=== PATIENT | female | born 1980 | race American Indian/Alaskan Native ===

== ENCOUNTER 2018-04-25 10:01 | Emergency (ER) | payer SELFPAY | END 2018-04-25 10:02 | disposition left against medical advice (07) | LOC: ED 10:01 | DX: K92.1 Melena (principal); R10.9 Unspecified abdominal pain; Z53.21 Procedure and treatment not carried out due to patient leaving prior to being seen by health care provider ==

== ENCOUNTER 2019-11-24 14:31 | Emergency (ER) | payer SELFPAY ==
--- NOTE | 2019-11-24 15:03 | Event Note ---
ED Screening Note Date of service: 11/24/19 Time: 15:02 ED Screening Note: Pt complains of flu like symptoms x 3 days and syncopal episode x today +JAUREGUI and nausea This initial assessment/diagnostic orders/clinical plan/treatment(s) is/are subject to change based on patients health status, clinical progression and re- assessment by fellow clinical providers in the ED. Further treatment and workup at subsequent clinical providers discretion. Patient/guardian urged not to elope from the ED as their condition may be serious if not clinically assessed and managed. Initial orders include: labs CT
[2019-11-24 15:41] LABS: Color,Urine Yellow (Yellow)
[2019-11-24 15:42] LABS: Bilirubin,Urine NEG (Negative); Blood,Urine LG (Negative); Mucus,Urine FEW /HPF; Protein,Urine <15 mg/dL mg/dL (Negative); Urobilinogen,Urine < 2.0 mg/dL (<2.0)
[2019-11-24 15:47] LABS: HCG Qualitative,Urine Negative (Negative)
--- NOTE | 2019-11-24 16:56 | XRay Report ---
CHEST 2 VIEWS INDICATION: MAIN: syncope FOR 3 TO 4 DAYS. COMPARISON: None. FINDINGS: Support devices: None. Heart: Within normal limits. Lungs/Pleura: No acute air space or interstitial disease. No significant pleural effusion. IMPRESSION: No acute findings. Signer Name: Uche Belle MD Signed: 11/24/2019 4:52 PM Workstation Name: [id number]
[2019-11-24 17:00] LABS: Hematocrit 24.5 % (30.3-42.9); Hemoglobin 7.6 gm/dl (10.1-14.3); Mean Corpuscular HGB Conc 31 % (30-34); Platelet Count 327 K/mm3 (140-440); Red Blood Count 4.08 M/mm3 (3.65-5.03)
[2019-11-24 17:03] LABS: Alanine Aminotransferase 14 units/L (7-56); Albumin 4.2 g/dL (3.9-5); BUN/Creatinine Ratio 6; Blood Urea Nitrogen 4 mg/dL (7-17); Calcium 9.8 mg/dL (8.4-10.2); Hemolysis Index 0; Mean Corpuscular Volume 60 fl (79-97); Red Cell Distribution Width 21.7 % (13.2-15.2)
--- NOTE | 2019-11-24 17:47 | Cat Scan Report ---
NONENHANCED CT SCAN OF THE HEAD: INDICATION / CLINICAL INFORMATION: 39 years Female; syncopal episode. TECHNIQUE: Routine CT head without contrast. All CT scans at this location are performed using CT dos e reduction for ALARA by means of automated exposure control. COMPARISON: None. FINDINGS: BRAIN / INTRACRANIAL CONTENTS: No acute hemorrhage, mass effect, midline shift, hydrocephalus, or acu te, large territorial infarct. No chronic infarct or focal atrophy. Normal brain volume and ventricul ar/sulcal size for age. No significant white matter abnormality. CRANIOCERVICAL JUNCTION: No significant abnormality. ORBITS: Bony remodeling is seen along the medial wall of left orbit; this could be congenital or coul d be posttraumatic. Ocular globes are normal bilaterally. SINUSES / MASTOIDS: No significant abnormality of the visualized paranasal sinuses or mastoid air sidra ls. ADDITIONAL FINDINGS: None. IMPRESSION: Normal nonenhanced CT scan of the brain. Signer Name: Fabienne Merritt MD Signed: 11/24/2019 5:42 PM Workstation Name: [id number]
--- NOTE | 2019-11-24 17:58 | Cat Scan Report ---
Exam: CT cervical spine History: pain after head injury; Technique: Contiguous thin cut axial images obtained through the cervical spine. Sagittal and otero l reconstructions performed by the technologist. All CT scans at this location are performed using CT dose reduction for ALARA by means of automated exposure control. Findings: No priors. There is no evidence of fracture or traumatic subluxation. I do not see vertebral compression fractur e. Prevertebral space is normal. In the transverse images, I do not see fracture involving the bony c anal. Vertebral bodies are normal in height and alignment. Intervertebral disc spaces are well-maintained. No significant degenerative change seen in the uncinate or facet joints. No significant canal stenosi s or osseous foraminal narrowing. Surrounding soft tissues are grossly normal. Impression: No signs of acute bony trauma to the cervical spine. Signer Name: Fabienne Merritt MD Signed: 11/24/2019 5:53 PM Workstation Name: [id number]
[2019-11-24 18:01] LABS: Basophils % (Manual) 0 % (0.0-1.8); Total Cells Counted 100
[2019-11-24 18:02] LABS: Hypochromasia 2+
[2019-11-24 18:04] LABS: Large Platelets 1+; Platelet Estimate Consistent w Auto; Target Cells 2+; Tear Drop Cells 1+
[2019-11-24] MEDS ORDERED: BUTALB/ACETAMINOPHEN/CAFFEINE TAB PO ONE (19:46)
[2019-11-24] MEDS ORDERED: IBUPROFEN 600 MG TAB PO ONE (19:46)
[2019-11-24 20:43] VITALS: BP 138/61
--- NOTE | 2019-11-24 20:44 | Emergency Department Report ---
ED General Adult HPI - General Chief complaint: Upper Respiratory Infection Stated complaint: BODY ACHES,SHORT OF BREATH Time Seen by Provider: 11/24/19 15:01 Source: patient, EMS Mode of arrival: Ambulatory Limitations: No Limitations - History of Present Illness Initial comments: Patient is a 39-year-old Turkish female with a history of chronic iron deficiency anemia and is not on any medications presents to the ED with content of acute onset persistent nasal and sinus congestion, frontal sinus pressure and headache for 2 days. Patient also complains of a single episode of syncope 2 hours ago that occurred when she got out of bed and as she walked to the bathroom, had a syncopal episode with brief loss of consciousness. Patient states that there was no weaknesses in the house at the time. Patient denies dizziness, seizures, chest pain, shortness of breath, abdominal pain, change in vision, nausea and vomiting or diarrhea, dysuria, urinary frequency and urgency, sore throat, fever and chills. MD Complaint: syncope; headache -: Sudden, hour(s) (8) Location: head, chest Radiation: non-radiation Severity scale (0 -10): 7 Quality: aching, sharp Consistency: constant Improves with: none Worsens with: none Associated Symptoms: denies other symptoms, cough, fever/chills, headaches, loss of appetite, malaise. denies: confusion, chest pain, diaphoresis, nausea/vomiting, rash, seizure, shortness of breath, syncope, weakness, other Treatments Prior to Arrival: none - Related Data Previous Rx's Medication Instructions Recorded Last Taken Type HYDROcodone/APAP 10-325 [Phyllis 1 each PO Q8H PRN #20 tablet 06/08/15 Unknown Rx 10/325] Polyethylene Glycol 3350 [Miralax] 15 gm PO QDAY #1 powder 06/08/15 Unknown Rx Benzonatate [Tessalon Perles] 100 mg PO Q8HR #30 capsule 11/24/19 Unknown Rx Ferrous Sulfate [Ferrous Sulfate 324 mg PO DAILY #30 tablet.dr 11/24/19 Unknown Rx 324 MG] Ibuprofen [Motrin] 600 mg PO Q8H PRN #20 tablet 11/24/19 Unknown Rx Ondansetron [Zofran Odt] 4 mg PO Q6HR PRN #15 tab.rapdis 11/24/19 Unknown Rx cephALEXin [Keflex] 500 mg PO Q8HR #30 cap 11/24/19 Unknown Rx Allergies Allergy/AdvReac Type Severity Reaction Status Date / Time No Known Allergies Allergy Verified 06/07/15 20:17 ED Review of Systems ROS: Stated complaint: BODY ACHES,SHORT OF BREATH Other details as noted in HPI Constitutional: denies: chills, fever Eyes: denies: eye pain, eye discharge, vision change ENT: congestion. denies: ear pain, throat pain Respiratory: cough. denies: shortness of breath, wheezing Cardiovascular: denies: chest pain, palpitations Endocrine: no symptoms reported Gastrointestinal: denies: abdominal pain, nausea, vomiting, diarrhea Genitourinary: denies: urgency, dysuria, discharge Musculoskeletal: denies: back pain, joint swelling, arthralgia Skin: denies: rash, lesions Neurological: headache, other (syncope). denies: weakness, paresthesias Psychiatric: denies: anxiety, depression Hematological/Lymphatic: denies: easy bleeding, easy bruising ED Past Medical Hx - Past Medical History Previous Medical History?: Yes Additional medical history: Hemorrhoids - Surgical History Past Surgical History?: Yes Additional Surgical History: ectopic surgery - Social History Smoking Status: Current Every Day Smoker Substance Use Type: None - Medications Home Medications: Home Medications Medication Instructions Recorded Confirmed Last Taken Type HYDROcodone/APAP 10-325 [Phyllis 1 each PO Q8H PRN #20 tablet 06/08/15 Unknown Rx 10/325] Polyethylene Glycol 3350 [Miralax] 15 gm PO QDAY #1 powder 06/08/15 Unknown Rx Benzonatate [Tessalon Perles] 100 mg PO Q8HR #30 capsule 11/24/19 Unknown Rx Ferrous Sulfate [Ferrous Sulfate 324 mg PO DAILY #30 tablet.dr 11/24/19 Unknown Rx 324 MG] Ibuprofen [Motrin] 600 mg PO Q8H PRN #20 tablet 11/24/19 Unknown Rx Ondansetron [Zofran Odt] 4 mg PO Q6HR PRN #15 tab.rapdis 11/24/19 Unknown Rx cephALEXin [Keflex] 500 mg PO Q8HR #30 cap 11/24/19 Unknown Rx ED Physical Exam - General Limitations: No Limitations General appearance: alert, in no apparent distress - Head Head exam: Present: atraumatic, normocephalic, normal inspection - Eye Eye exam: Present: normal appearance, PERRL, EOMI Pupils: Present: normal accommodation - ENT ENT exam: Present: normal orophraynx, mucous membranes moist, TM's normal bilaterally, normal external ear exam, other (grossly congested nasal passages, frontal sinus tenderness) - Neck Neck exam: Present: normal inspection, full ROM - Respiratory Respiratory exam: Present: normal lung sounds bilaterally. Absent: respiratory distress, wheezes, rales, rhonchi, chest wall tenderness, accessory muscle use, decreased breath sounds - Cardiovascular Cardiovascular Exam: Present: regular rate, normal rhythm, normal heart sounds. Absent: systolic murmur, diastolic murmur, rubs, gallop - GI/Abdominal GI/Abdominal exam: Present: soft, normal bowel sounds. Absent: tenderness, guarding, hyperactive bowel sounds, organomegaly - Extremities Exam Extremities exam: Present: normal inspection, full ROM, normal capillary refill - Back Exam Back exam: Present: normal inspection, full ROM. Absent: tenderness, CVA tenderness (R), CVA tenderness (L), muscle spasm, paraspinal tenderness - Neurological Exam Neurological exam: Present: alert, oriented X3, CN II-XII intact, normal gait, reflexes normal - Psychiatric Psychiatric exam: Present: normal affect, normal mood - Skin Skin exam: Present: warm, dry, intact, normal color. Absent: rash ED Course Vital Signs 11/24/19 11/24/19 11/24/19 15:02 20:00 20:03 Temperature 98.4 F Pulse Rate 98 H Respiratory 16 16 16 Rate Blood Pressure 112/75 O2 Sat by Pulse 98 Oximetry ED Medical Decision Making - Lab Data Result diagrams: 11/24/19 16:35 11/24/19 16:35 - EKG Data EKG shows normal: sinus rhythm Rate: normal - EKG Data Interpretation: normal EKG 11/24/19 20:52 EKG shows normal sinus rhythm with ventricular rate of 86 bpm, no ST or T-wave abnormalities or pathological Q waves. - Radiology Data Radiology results: report reviewed, image reviewed Head CT scan without contrast shows no acute intracranial abnormalities or hemorrhage. Chest x-ray shows no acute cardiopulmonary abnormalities or pneumonitis. - Medical Decision Making This is a 39-year-old -Turkish female with a history of chronic iron deficiency anemia and was noncompliant with the medication presents to the ED with acute onset persistent nasal and sinus congestion, dry cough, headache and diffuse body aches for 2 days. Patient also states that prior to arrival in the ED she had a single episode of syncope with brief loss of consciousness. In the ED, patient is alert and oriented 3 and is not in distress. Lab test results show hemoglobin of 7.6 and hematocrit of 24.5, UTI in urinalysis and mild hyponatremia 136 mmol per liter. The EKG shows normal sinus rhythm with a ventricular rate of [address] or T-wave abnormalities or pathological Q waves. Chest x-ray shows no acute cardiopulmonary of modalities or pneumonitis. Head CT scan without contrast shows no intracranial abnormalities or hemorrhage. Other lab test results are unremarkable. Patient was treated for pain in the ED and was discharged home on medications including iron tablets for her chronic iron deficiency anemia. Patient was advised to follow-up with her primary care physician in 7-10 days for reevaluation or return to the ED immediately if symptoms get worse. - Differential Diagnosis sinusitis; URI; Chronic anemia; Vasovagal syncope Critical care attestation.: If time is entered above; I have spent that time in minutes in the direct care of this critically ill patient, excluding procedure time. ED Disposition Clinical Impression: Syncope and collapse, Acute upper respiratory infection, Chronic iron deficiency anemia, Acute urinary tract infection Disposition: DC-01 TO HOME OR SELFCARE Is pt being admited?: No Does the pt Need Aspirin: No Condition: Stable Instructions: Syncope (ED), Iron Deficiency Anemia (ED), Urinary Tract Infection in Women (ED) Additional Instructions: Take medications with food, drink plenty of fluids and follow-up with your primary care physician in 7-10 days for reevaluation. Return to the ED immediately if symptoms get worse. Prescriptions: Ferrous Sulfate [Ferrous Sulfate 324 MG] 324 mg PO DAILY #30 tablet. cephALEXin [Keflex] 500 mg PO Q8HR #30 cap Ibuprofen [Motrin] 600 mg PO Q8H PRN #20 tablet PRN Reason: Pain Benzonatate [Tessalon Perles] 100 mg PO Q8HR #30 capsule Ondansetron [Zofran Odt] 4 mg PO Q6HR PRN #15 tab.rapdis PRN Reason: Nausea Referrals: [facility] [Outside] - 7-10 days Time of Disposition: 20:40 Print Language: BULGARIAN
== END 2019-11-24 20:48 | disposition home or self-care (01) ==
LOC: ED 14:31
DX: N39.0 Urinary tract infection, site not specified (principal); J06.9 Acute upper respiratory infection, unspecified; Z86.2 Personal history of diseases of the blood and blood-forming organs and certain disorders involving the immune mechanism
CPT/HCPCS: 36415; 70450; 71046; 72125; 80053; 81001; 81025; 84484; 85007; 85025; 87086; 93005; 93010

== ENCOUNTER 2020-12-02 00:23 | Emergency (ER) | payer SELFPAY ==
[2020-12-02] MEDS ORDERED: SODIUM CHLORIDE 0.9% 1000 ML 1,000 ML IV ONE (00:48)
[2020-12-02] MEDS ORDERED: ONDANSETRON 4 MG/2 ML INJ IV ONE (00:48)
[2020-12-02] MEDS ORDERED: FAMOTIDINE 20 MG/2 ML INJ IV ONE (00:48)
[2020-12-02] MEDS ORDERED: DICYCLOMINE 20 MG/2 ML INJ IM ONE (00:49)
[2020-12-02 01:31] LABS: Hematocrit 28.4 % (30.3-42.9); Hemoglobin 8.9 gm/dl (10.1-14.3); Mean Corpuscular HGB Conc 31 % (30-34); Platelet Count 449 K/mm3 (140-440); Red Blood Count 4.46 M/mm3 (3.65-5.03)
[2020-12-02 01:39] LABS: Basophils % (Auto) 0.2 % (0.0-1.8); Lymphocytes # (Auto) 0.4 K/mm3 (1.2-5.4); Lymphocytes % (Auto) 2.9 % (13.4-35.0); Mean Corpuscular Volume 64 fl (79-97); Monocytes # (Auto) 0.6 K/mm3 (0.0-0.8); Monocytes % (Auto) 4.5 % (0.0-7.3)
[2020-12-02 01:50] LABS: Alanine Aminotransferase 12 units/L (7-56); Albumin 4.2 g/dL (3.9-5); BUN/Creatinine Ratio 8; Blood Urea Nitrogen 6 mg/dL (7-17); Calcium 10.6 mg/dL (8.4-10.2); Hemolysis Index 5
[2020-12-02 05:24] LABS: Bacteria,Urine 1+ /HPF (Negative); Bilirubin,Urine NEG (Negative); Blood,Urine NEG (Negative); Color,Urine Yellow (Yellow); Protein,Urine <15 mg/dL mg/dL (Negative); Urobilinogen,Urine < 2.0 mg/dL (<2.0)
[2020-12-02] MEDS ORDERED: KETOROLAC 30 MG/1 ML INJ IV ONE (05:25)
--- NOTE | 2020-12-02 05:34 | Emergency Department Report ---
ED N/V/D HPI - General Chief complaint: Abdominal Pain Stated complaint: VOMITING DIARRHEA ABD PAIN Source: patient, EMS Mode of arrival: Wheelchair Limitations: No Limitations - History of Present Illness Initial comments: Patient is a 40-year-old -British female with a history of hemorrhoids who presents to the ED with complaint of acute onset persistent intractable n ausea and vomiting with diffuse abdominal pain for the last 24 hours. Patient states that prior to the onset of the symptoms she had eaten food in a restaurant and suspect that it the symptoms are from food poisoning. Patient states that in the last 12 hours she has had multiple episodes of nausea and vomiting such that she is unable to keep anything down. Patient states that no one else at home is had similar symptoms. Patient denies dizziness, syncope, fever, chills, diarrhea, dysuria, urine frequency and urgency, vaginal bleeding, vaginal discharge, dyspareunia, low back pain, chest pain, shortness of breath, cough, sore throat, nasal and sinus congestion or headache and change in vision. MD complaint: nausea, vomiting, abdominal pain -: Sudden, hour(s) (12) Description of Vomiting: food contents, watery Associated Abdominal Pain: Yes (diffuse mildly) Location: diffuse Radiation: none Severity: moderate Pain Scale: 4 Quality: cramping, dull Consistency: intermittent Improves with: none Worsens with: eating, vomiting Context: possible food poisoning Associated Symptoms: denies other symptoms, myalgias, loss of appetite, malaise, nausea/vomiting. denies: chest pain, cough, diaphoresis, fever/chills, headaches, rash, dysuria, shortness of breath, syncope, other - Related Data Previous Rx's Medication Instructions Recorded Last Taken Type HYDROcodone/APAP 10-325 [[place] 1 each PO Q8H PRN #20 tablet 06/08/15 Unknown Rx 10/325] polyethylene glycoL 3350 [Miralax] 15 gm PO QDAY #1 powder 06/08/15 Unknown Rx Benzonatate [Tessalon Perles] 100 mg PO Q8HR #30 capsule 11/24/19 Unknown Rx Ferrous Sulfate [Ferrous Sulfate 324 mg PO DAILY #30 tablet. 11/24/19 Unknown Rx 324 MG] Ibuprofen [Motrin] 600 mg PO Q8H PRN #20 tablet 11/24/19 Unknown Rx Ondansetron [Zofran Odt] 4 mg PO Q6HR PRN #15 tab.rapdis 11/24/19 Unknown Rx cephALEXin [Keflex] 500 mg PO Q8HR #30 cap 11/24/19 Unknown Rx Dicyclomine [Bentyl] 20 mg PO Q6H PRN #30 tablet 12/02/20 Unknown Rx Famotidine [Pepcid] 20 mg PO BID #30 tablet 12/02/20 Unknown Rx Ibuprofen [Motrin] 600 mg PO Q8H PRN #20 tablet 12/02/20 Unknown Rx Ondansetron [Zofran Odt] 4 mg PO Q6HR PRN #20 tab.rapdis 12/02/20 Unknown Rx cephALEXin [Keflex] 500 mg PO Q8HR #30 cap 12/02/20 Unknown Rx Allergies Allergy/AdvReac Type Severity Reaction Status Date / Time No Known Allergies Allergy Verified 06/07/15 20:17 ED Review of Systems ROS: Stated complaint: VOMITING DIARRHEA ABD PAIN Other details as noted in HPI Constitutional: denies: chills, fever Eyes: denies: eye pain, eye discharge, vision change ENT: denies: ear pain, throat pain Respiratory: denies: cough, shortness of breath, wheezing Cardiovascular: denies: chest pain, palpitations Endocrine: no symptoms reported Gastrointestinal: abdominal pain, nausea, vomiting. denies: diarrhea Genitourinary: denies: urgency, dysuria, discharge Musculoskeletal: denies: back pain, joint swelling, arthralgia Skin: denies: rash, lesions Neurological: denies: headache, weakness, paresthesias Psychiatric: denies: anxiety, depression Hematological/Lymphatic: denies: easy bleeding, easy bruising ED Past Medical Hx - Past Medical History Previous Medical History?: Yes Additional medical history: Hemorrhoids - Surgical History Past Surgical History?: Yes Additional Surgical History: ectopic surgery - Social History Smoking Status: Current Every Day Smoker Substance Use Type: None - Medications Home Medications: Home Medications Medication Instructions Recorded Confirmed Last Taken Type HYDROcodone/APAP 10-325 [[place] 1 each PO Q8H PRN #20 tablet 06/08/15 Unknown Rx 10/325] polyethylene glycoL 3350 [Miralax] 15 gm PO QDAY #1 powder 06/08/15 Unknown Rx Benzonatate [Tessalon Perles] 100 mg PO Q8HR #30 capsule 11/24/19 Unknown Rx Ferrous Sulfate [Ferrous Sulfate 324 mg PO DAILY #30 tablet.dr 11/24/19 Unknown Rx 324 MG] Ibuprofen [Motrin] 600 mg PO Q8H PRN #20 tablet 11/24/19 Unknown Rx Ondansetron [Zofran Odt] 4 mg PO Q6HR PRN #15 tab.rapdis 11/24/19 Unknown Rx cephALEXin [Keflex] 500 mg PO Q8HR #30 cap 11/24/19 Unknown Rx Dicyclomine [Bentyl] 20 mg PO Q6H PRN #30 tablet 12/02/20 Unknown Rx Famotidine [Pepcid] 20 mg PO BID #30 tablet 12/02/20 Unknown Rx Ibuprofen [Motrin] 600 mg PO Q8H PRN #20 tablet 12/02/20 Unknown Rx Ondansetron [Zofran Odt] 4 mg PO Q6HR PRN #20 tab.rapdis 12/02/20 Unknown Rx cephALEXin [Keflex] 500 mg PO Q8HR #30 cap 12/02/20 Unknown Rx ED Physical Exam - General Limitations: No Limitations General appearance: alert, in no apparent distress - Head Head exam: Present: atraumatic, normocephalic - Eye Eye exam: Present: normal appearance, PERRL, EOMI Pupils: Present: normal accommodation - ENT ENT exam: Present: normal exam, normal orophraynx, mucous membranes moist, TM's normal bilaterally, normal external ear exam - Neck Neck exam: Present: normal inspection, full ROM - Respiratory Respiratory exam: Present: normal lung sounds bilaterally. Absent: respiratory distress, wheezes, rales, rhonchi, chest wall tenderness, accessory muscle use, decreased breath sounds, prolonged expiratory - Cardiovascular Cardiovascular Exam: Present: normal rhythm, tachycardia, normal heart sounds. Absent: systolic murmur, diastolic murmur, rubs, gallop - GI/Abdominal GI/Abdominal exam: Present: soft, normal bowel sounds. Absent: distended, tenderness, guarding, rebound, hyperactive bowel sounds, hypoactive bowel sounds, organomegaly - Extremities Exam Extremities exam: Present: normal inspection, full ROM, normal capillary refill - Back Exam Back exam: Present: normal inspection, full ROM. Absent: tenderness, CVA tenderness (R), CVA tenderness (L), muscle spasm, paraspinal tenderness, vertebral tenderness - Neurological Exam Neurological exam: Present: alert, oriented X3, CN II-XII intact, normal gait, reflexes normal - Psychiatric Psychiatric exam: Present: normal affect, normal mood - Skin Skin exam: Present: warm, dry, intact, normal color. Absent: rash ED Course Vital Signs 12/02/20 00:47 Temperature 98.5 F Pulse Rate 106 H Respiratory 16 Rate Blood Pressure 113/66 [Right] O2 Sat by Pulse 100 Oximetry ED Medical Decision Making - Lab Data Result diagrams: 12/02/20 00:51 12/02/20 00:51 - Medical Decision Making This is a 40-year-old -British female with a history of hemorrhoids who presents to the ED with complaint of acute onset persistent intractable nausea and vomiting with diffuse abdominal pain for the last 24 hours. Patient states that prior to the onset of the symptoms she had eaten food in a restaurant and suspect that it the symptoms are from food poisoning. Patient states that in the last 12 hours she has had multiple episodes of nausea and vomiting such that she is unable to keep anything down. Patient states that no one else at home is had similar symptoms. In the ED, patient is alert and oriented x3 and is not in distress. Patient was treated in the ED for nausea and vomiting also given antacids and antispasmodics with normal saline 1 L IV bolus x1. Lab test results were reviewed and showed acute leukocytosis of 14,000, acute hyponatremia of 133 mmol/L and significant urinary tract infection characterized by positive nitrites, moderate leukocyte esterase and > 17 WBCs with 1+ bact eriuria. Rocephin 1 g IV x1 was ordered with ketorolac 30 mg IV x1. Patient however signed out AMA and left the ED before this medications could be given to her - Differential Diagnosis Gastroenteritis; dehydration; UTI; GERD; gastritis Critical care attestation.: If time is entered above; I have spent that time in minutes in the direct care of this critically ill patient, excluding procedure time. ED Disposition Clinical Impression: Nausea and vomiting in adult patient, Viral gastroenteritis, Acute urinary tract infection Abdominal pain Qualifiers: Abdominal location: generalized Qualified Code(s): R10.84 - Generalized abdominal pain Disposition: LEFT AGAINST MED ADVICE Is pt being admited?: No Does the pt Need Aspirin: No Condition: Stable Instructions: Viral Gastroenteritis, Adult, [id number], Nausea and Vomiting, Adult, [id number], Abdominal Pain, Adult, [id number], Abdominal Pain (ED) Additional Instructions: All lab test results were reviewed and are all nonactionable. Therefore maintain a clear liquid diet for 12 to 24 hours, drink plenty of fluids, take medication as needed and follow-up with your primary care physician in 3 to 5 days for reevaluation. Return to the ED immediately if symptoms get worse. Prescriptions: Dicyclomine [Bentyl] 20 mg PO Q6H PRN #30 tablet PRN Reason: Abdominal pain cephALEXin [Keflex] 500 mg PO Q8HR #30 cap Ibuprofen [Motrin] 600 mg PO Q8H PRN #20 tablet PRN Reason: Pain Famotidine [Pepcid] 20 mg PO BID #30 tablet Ondansetron [Zofran Odt] 4 mg PO Q6HR PRN #20 tab.rapdis PRN Reason: Nausea Referrals: [facility] [Provider Group] - 3-5 Days Forms: AMA Form, Work/School Release Form(ED) Time of Disposition: 05:27 Print Language: SALVADOREAN
[2020-12-02] MEDS ORDERED: cefTRIAXone/NS 1 GM/50 ML 1 GM/50 ML BAG IV ONE (05:35)
[2020-12-02 06:05] VITALS: BP 110/60
== END 2020-12-02 05:00 | disposition left against medical advice (07) ==
LOC: ED 00:23
DX: A08.4 Viral intestinal infection, unspecified (principal); N39.0 Urinary tract infection, site not specified; F17.200 Nicotine dependence, unspecified, uncomplicated; Z79.899 Other long term (current) drug therapy
CPT/HCPCS: 36415; 80053; 81001; 83690; 84703; 85025; 87076; 87086; 87186; 96361; 96372; 96374; 96375; 99284; J0500; J2405; J7030; J1885

== ENCOUNTER 2022-07-10 14:36 | Emergency (ER) | payer SELFPAY ==
[2022-07-10 15:06] VITALS: BP 131/94
== END 2022-07-10 18:45 | disposition left against medical advice (07) ==
LOC: ED 14:36
DX: H57.12 Ocular pain, left eye (principal); Z53.21 Procedure and treatment not carried out due to patient leaving prior to being seen by health care provider